=== PATIENT | male | born 1965 | race American Indian/Alaskan Native ===

== ENCOUNTER 2018-06-26 09:30 | Emergency (ER) | payer OTHER, BC ==
[2018-06-26 09:50] VITALS: PULSE 70
[2018-06-26] MEDS ORDERED: Lidocaine 5% Patch TD STA (10:33)
[2018-06-26] MEDS ORDERED: Lidocaine 5% Patch TD ONE (10:44)
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
[2018-06-26 11:45] VITALS: BP 146/82; RESP 18; TEMP 98.8; O2SAT 100
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
== END 2018-06-26 11:45 | disposition home or self-care (01) ==
LOC: C.ER 09:30
DX: S20.212A Contusion of left front wall of thorax, initial encounter (principal); S63.92XA Sprain of unspecified part of left wrist and hand, initial encounter; S80.811A Abrasion, right lower leg, initial encounter; V49.49XA Driver injured in collision with other motor vehicles in traffic accident, initial encounter; Y92.410 Unspecified street and highway as the place of occurrence of the external cause
CPT/HCPCS: 71101; 73130; 73590; 96372; 99285; J1885